=== PATIENT | female | born 1995 | race Caucasian/White ===

== ENCOUNTER 2017-05-28 23:51 | Emergency (ER) | payer OTHER ==
[~2017-05-28] VITALS: Ht 162.6 cm; Wt 99.8 kg
[~2017-05-28 23:51] MED LIST: LAMICTAL 25 MG25 M1 PO; OMEPRAZOLE40 MG PO; PAXIL PO
[2017-05-28] MEDS ORDERED: CYMBALTA60 MG PO (23:59)
[2017-05-29] MEDS ORDERED: TREXIMET 10-601 EACH PO
[2017-05-29] MEDS ORDERED: NORTRIPTYLINE H50 MG PO
[2017-05-29] MEDS ORDERED: CLONAZEPAM 0.50.5 M1 PO (00:01)
[2017-05-29] MEDS ORDERED: METFORMIN HCL500 MG PO (00:01)
[2017-05-29] MEDS ORDERED: ESTARYLLA1 EACH PO (00:01)
[2017-05-29] MEDS ORDERED: VALACYCLOVIR500 MG PO (00:02)
[2017-05-29 00:15] LABS: ABSOLUTE BASOPHILS 0.1 thou/uL (0.0-0.2); ABSOLUTE EOSINOPHILS 0.1 thou/uL (0.0-0.7); ABSOLUTE MONOCYTES 0.7 thou/uL (0.0-1.2); BASOPHILS 0.5 %; EOSINOPHILS 0.8 %; HEMATOCRIT 42.1 % (37.0-47.0); HEMOGLOBIN 13.8 gm/dL (12.0-15.0); LYMPHOCYTES 13.5 %; MCH 26.7 pg (26.0-34.0); MCHC 32.7 g/dL (28.0-37.0); MCV 81.7 fL (80.0-100.0); MONOCYTES 4.9 %; MPV 9.6 fl. (7.2-11.1); NUCLEATED RBCS 0 /100WBC; PLATELET COUNT* 360 thou/uL (150-400); POLYS 80.3 %; RBC 5.16 mil/uL (4.20-5.00); RDW-CV 14.5 % (10.5-14.5)
[2017-05-29 00:23] LABS: CALCIUM 8.9 mg/dL (8.5-10.1); CREATININE 0.9 mg/dL (0.6-1.3); POTASSIUM 3.8 mmol/L (3.5-5.1)
[2017-05-29 00:27] LABS: ALBUMIN 3.4 g/dL (3.4-5.0); TOTAL BILIRUBIN 0.3 mg/dL (<0.1-1.0); TOTAL PROTEIN 7.9 g/dL (6.4-8.2)
[2017-05-29] MEDS ORDERED: HYDROCODONE-AP1 EAC6 PO (04:04)
[2017-05-29] MEDS ORDERED: ZOFRAN ODT4 MG PO (04:04)
[2017-05-29 04:22] VITALS: BP 132/88
== END 2017-05-29 04:22 | disposition home or self-care (01) ==
LOC: M.ERS 23:51
PROVIDERS: Emergency Medicine
DX: K52.9 Noninfective gastroenteritis and colitis, unspecified (principal); Z88.5 Allergy status to narcotic agent; Z88.8 Allergy status to other drugs, medicaments and biological substances

== ENCOUNTER 2017-06-19 00:29 | Emergency (ER) | payer OTHER ==
[~2017-06-19] VITALS: Ht 162.6 cm; Wt 104.3 kg
[~2017-06-19 00:29] MED LIST changes: +CLONAZEPAM 0.50.5 M1 PO; +CYMBALTA60 MG PO; +ESTARYLLA1 EACH PO; +HYDROCODONE-AP1 EAC6 PO; +METFORMIN HCL500 MG PO; +NORTRIPTYLINE H50 MG PO; +TREXIMET 10-601 EACH PO; +VALACYCLOVIR500 MG PO; +ZOFRAN ODT4 MG PO
[2017-06-19 00:58] LABS: ABSOLUTE BASOPHILS 0.1 thou/uL (0.0-0.2); ABSOLUTE EOSINOPHILS 0.3 thou/uL (0.0-0.7); ABSOLUTE LYMPHOCYTES 2.3 thou/uL (0.8-5.3); ABSOLUTE MONOCYTES 0.9 thou/uL (0.0-1.2); ABSOLUTE NEUTROPHILS 12.8 thou/uL (1.6-8.1); BASOPHILS 0.4 %; EOSINOPHILS 1.9 %; HEMATOCRIT 40.4 % (37.0-47.0); HEMOGLOBIN 13.3 gm/dL (12.0-15.0); LYMPHOCYTES 13.9 %; MCV 81.9 fL (80.0-100.0); MONOCYTES 5.4 %; MPV 9.7 fl. (7.2-11.1); NUCLEATED RBCS 0 /100WBC; PLATELET COUNT* 357 thou/uL (150-400); POLYS 78.4 %; RBC 4.93 mil/uL (4.20-5.00); WBC 16.3 thou/uL (4.0-11.0)
[2017-06-19 01:06] LABS: CALCIUM 8.6 mg/dL (8.5-10.1); CREATININE 0.8 mg/dL (0.6-1.3); POTASSIUM 3.8 mmol/L (3.5-5.1)
[2017-06-19 01:10] LABS: ALBUMIN 3.3 g/dL (3.4-5.0); TOTAL BILIRUBIN 0.2 mg/dL (<0.1-1.0); TOTAL PROTEIN 7.6 g/dL (6.4-8.2)
[2017-06-19] MEDS ORDERED: HYDROCODONE-AP1 EAC6 PO (03:14)
[2017-06-19] MEDS ORDERED: PHENERGAN 25 MG25 M1 PO (03:14)
[2017-06-19 03:28] VITALS: BP 132/88
== END 2017-06-19 03:28 | disposition home or self-care (01) ==
LOC: M.ERS 00:29
PROVIDERS: Emergency Medicine
DX: R11.2 Nausea with vomiting, unspecified (principal); R19.7 Diarrhea, unspecified; Z88.8 Allergy status to other drugs, medicaments and biological substances; Z88.4 Allergy status to anesthetic agent; Z88.5 Allergy status to narcotic agent